=== PATIENT | male | born 1975 | race Caucasian/White ===

== ENCOUNTER 2021-07-28 08:30 | Emergency (ER) | payer OTHER ==
[~2021-07-28] VITALS: Ht 182.9 cm; Wt 95.2 kg
[~2021-07-28 08:30] MED LIST: IBUPROFEN800 MG PO; OMEPRAZOLE20 MG PO; PROPRANOLOL HCL20 MG PO; SOMA350 MG PO; TRAMADOL HCL50 MG PO; TREXIMET 10-601 EACH PO; VICODIN 5-3001 EACH PO
== END 2021-07-28 10:28 | disposition home or self-care (01) ==
LOC: ED 08:30
DX: S22.42XA Multiple fractures of ribs, left side, initial encounter for closed fracture (principal); F17.200 Nicotine dependence, unspecified, uncomplicated; W50.0XXA Accidental hit or strike by another person, initial encounter
CPT/HCPCS: 71101; 99283-25; A9270